=== PATIENT | male | born 1960 | race Caucasian/White ===

== ENCOUNTER 2023-03-12 14:56 | Outpatient (CLI) | payer MEDICARE, MEDICAID, SELFPAY | END 2023-03-12 14:57 | disposition home or self-care (01) | LOC: LAB 14:58 | PROVIDERS: Visit Provider Internal Medicine Cardiovascular Disease | DX: Z01.89 Encounter for other specified special examinations (principal) | CPT/HCPCS: 85610 ==

== ENCOUNTER 2023-03-20 12:09 | Outpatient (CLI) | payer MEDICARE, MEDICAID, SELFPAY ==
[2023-03-20 13:12] LABS: INR 3.39 (0.8-1.2)
== END 2023-03-20 12:10 | disposition home or self-care (01) ==
LOC: LAB 12:10
PROVIDERS: Visit Provider Internal Medicine Cardiovascular Disease
DX: Z01.89 Encounter for other specified special examinations (principal)
CPT/HCPCS: 85610

== ENCOUNTER 2023-04-04 14:03 | Outpatient (CLI) | payer MEDICARE, MEDICAID, SELFPAY ==
[2023-04-04 14:39] LABS: INR 1.97 (0.8-1.2)
== END 2023-04-04 14:04 | disposition home or self-care (01) ==
LOC: LAB 14:12
PROVIDERS: Visit Provider Internal Medicine Cardiovascular Disease
DX: Z01.89 Encounter for other specified special examinations (principal)
CPT/HCPCS: 85610